=== PATIENT | male | born 1980 ===

== ENCOUNTER 2023-12-12 15:13 | Outpatient (AMB) | payer OTHER, SELFPAY ==
--- NOTE | 2023-12-12 15:13 | MHC.OFFVIS ---
Intake Vital Signs 12/12/23 15:16 Height 5 ft 10 in Weight 219 lb BMI 31.4 BP 118/72 Blood Pressure Location Rt brachial Position Sitting Respiration 16 Pulse 77 Pulse Source Pulse Oximeter Pulse Oximetry (%) 98 Intake Visit Reasons: ENP-NEDA - CONF w/address Intake Note: Pt presents for new pt evaluation for sleep Apnea. Change Attendant Required: No Allergies No Known Allergies Allergy (Verified 12/12/23 15:15) HPI HPI Comments History of Present Illness Details 43 y/o male patient presents for new in-person visit to establish care for sleep apnea. Pt moved from [place], and his previous sleep medicine was [facility] (fax #[phone]). Pt reports he was diagnosed with sleep apnea in 2021. He had a home sleep study and was diagnosed with mild degree of sleep apnea. The AHI was 14/hr. The CPAP compliance and therapy response for 6 months reviewed. He is on CPAP at 8.3 cmH2O. The usage days 130 days/180 days. The average usage hours 3.9 hrs, and >4 hrs usages days 67 days. The residual AHI was 0.3/hr. Pt reports his mask is loosened and needs new supplies. He goes to bed 10:30 pm, can fall asleep 12 am, and sleep about 4 hrs. The CPAP mask causes his mouth very dry and it can be bothersome. However, he overall sleep well with CPAP, has less snoring and daytime sleepiness has improved. He uses [employer] for sleep. His current home care company is [employer]. The [employer] agent number is [phone]. [facility] [place] Surgical History (Updated 12/12/23 @ 15:26 by Bridget Gibson CMA) H/O vasectomy H/O eye surgery Family History Father Diabetes Brother ADHD Brother Depressed Brother Diabetes Paternal Grandfather Cancer Social History Alcohol intake: current Comment: 1 standar drink Patient Tobacco Use Status: Former Tobacco user Tobacco use type: Cigarette Review of Systems Const All systems reviewed & are unremarkable except as noted in HPI and below Physical Exam Vital Signs: Last Vital Signs Pulse 77 12/12/23 15:16 Resp 16 12/12/23 15:16 BP 118/72 12/12/23 15:16 Pulse Ox 98 12/12/23 15:16 BMI result Body Mass Index 31.4 Const General: cooperative and healthy appearing Nutritional Appearance: overweight Orientation/consciousness: patient oriented x3 Neck Neck: Yes full ROM and Yes supple Resp Effort & Inspection: normal respiratory effort and able to speak in complete sentences Neuro General: patient oriented x3 and gait normal Cranial nerves: Yes CN's II-XII intact bilaterally Cognition (Neuro): normal cognition Gait exam (Neuro): Normal gait present Motor exam (neuro): 5/5 motor strength present throughout Psych Appearance: grossly normal Mental Status: mental status grossly normal Speech and movement: Normal speech and movement present Affect: normal affect Attitude: cooperative Assessment & Plan Assessment & Plan (1) NEDA on CPAP: Code(s): G47.33 - Obstructive sleep apnea (adult) (pediatric) Plan Advised patient to continue to use CPAP at 8.3cmH2O as patient experiences good clinical effect, less snoring and daytime tiredness has improved. Stressed compliance, use CPAP nightly and more than 4 hrs. Will send the prescription for CPAP supplies to [facility] which patient requested to send. Coding Level of Care Code New Pt Level 3 (57803) Diagnoses NEDA on CPAP G47.33
[2023-12-12 15:16] VITALS: BP 118/72; PULSE 77; RESP 16; O2SAT 98; BMI 31.4
== END 2023-12-12 15:48 | disposition home or self-care (01) ==
PROVIDERS: PCP Internal Medicine; Visit Provider Nurse Practitioner Family
DX: G47.33 Obstructive sleep apnea (adult) (pediatric) (principal)
CPT/HCPCS: 99203

== ENCOUNTER → 2023-12-12 15:13 | Outpatient (BNVA) | payer OTHER, SELFPAY | PROVIDERS: PCP Internal Medicine; Visit Provider Nurse Practitioner Family | DX: G47.33 Obstructive sleep apnea (adult) (pediatric) (principal); Z99.89 Dependence on other enabling machines and devices | CPT/HCPCS: 99202 ==